=== PATIENT | female | born 1940 ===

== ENCOUNTER → 2024-01-21 | Day surgery (SDC) | payer OTHER ==
[~2024-01-21] MED LIST: BREO ELLIPTA 51 EACH IH; CEFAZOLIN SODIUM 1,000 MG VIAL IV ONE; CEFAZOLIN SODIUM 1,000 MG VIAL ONE; COZAAR100 MG PO; ESTAZOLAM2 MG PO; FARXIGA5 MG PO; HORIZANT300 MG PO; HYDRALAZINE HCL25 MG PO; LIDOCAINE HCL 1%/Epi 20ML VIAL IJ ONE; LIPITOR40 MG PO; MACROBID 100 M100 MG PO; NITROSTAT0.4 MG SL; ROPINIROLE HC0.25 MG PO; TRAM1TAB98 PO; ZYRTEC10 MG PO
== END | disposition home or self-care (01) ==
LOC: ADM 01-09 10:45 → CIR.AMB 01-14 10:45
PROVIDERS: ATTEND Obstetrics & Gynecology Gynecology
DX: N81.11 Cystocele, midline (principal); Z20.822 Contact with and (suspected) exposure to COVID-19; I10 Essential (primary) hypertension